=== PATIENT | female | born 1935 | race Asian ===

== ENCOUNTER 2024-07-17 20:54 | Emergency (ER) | payer MEDICARE, OTHER ==
[~2024-07-17] VITALS: Ht 154.9 cm; Wt 63.5 kg
[2024-07-17 22:43] VITALS: BP 151/73; TEMP 98.3; O2SAT 96
== END 2024-07-17 22:43 | disposition home or self-care (01) ==
LOC: ER 21:01
DX: S00.03XA Contusion of scalp, initial encounter (principal); E03.9 Hypothyroidism, unspecified; M25.521 Pain in right elbow; Z79.01 Long term (current) use of anticoagulants; W01.0XXA Fall on same level from slipping, tripping and stumbling without subsequent striking against object, initial encounter; Y93.89 Activity, other specified; Y92.89 Other specified places as the place of occurrence of the external cause; Y99.8 Other external cause status
CPT/HCPCS: 70450-TC; 72125-TC; 73080-TC; 73521